=== PATIENT | male | born 1970 | race Caucasian/White ===

== ENCOUNTER 2019-01-29 08:38 | Day surgery (SDC) ==
[2019-01-29] MEDS: BETADINE OPTH PREP OP PRN ×2 (09:30→10:00)
[2019-01-29] MEDS: TETRACAINE 0.5% UNIT-DOSE OP PRN ×3 (09:30→10:18)
[2019-01-29] MEDS: CYCLOGYL 2% OPTH OP PRN ×3 (09:31→09:41)
[2019-01-29 09:42] VITALS: TEMP 98.3
[2019-01-29] MEDS ORDERED: BRIMONIDINE TARTRATE 0.2% OPTH SOL OP PRN (09:43)
[2019-01-29] MEDS ORDERED: LIDOCAINE 1% 20 ML MDV ID STA (09:43)
[2019-01-29] MEDS ORDERED: ZOFRAN 4 MG/2 ML IVP ONE (09:43)
[2019-01-29] MEDS ORDERED: DIPRIVAN 20 ML VIAL IVP ONE (10:00)
[2019-01-29] MEDS ORDERED: VERSED ONE (10:00)
[2019-01-29] MEDS ORDERED: SUBLIMAZE ONE (10:00)
[2019-01-29] MEDS ORDERED: ZOFRAN 4 MG/2 ML ONE (10:00)
[2019-01-29] MEDS: LIDOCAINE 1%/PHENYLEPHRINE 1.5% BSS (SURGERY) INTRAOCULA ONE ×2 (10:08→10:18)
[2019-01-29] MEDS: DEX-MOXI-KETOR OPTH INJ 1/0.5/0.4 MG/ML IO ONE ×2 (10:08→10:18)
[2019-01-29] MEDS: BSS WITH EPINEPHRINE OP ONE ×2 (10:08→10:18)
[2019-01-31 14:23] VITALS: BP 132/68
== END 2019-01-29 11:05 | disposition home or self-care (01) ==
LOC: SURG 08:38
PROVIDERS: ATTEND Ophthalmology
DX: H25.812 Combined forms of age-related cataract, left eye (principal)

== ENCOUNTER 2019-02-11 06:19 | Day surgery (SDC) ==
[2019-02-11] MEDS: BETADINE OPTH PREP OP PRN ×2 (06:30→07:25)
[2019-02-11] MEDS: TETRACAINE 0.5% UNIT-DOSE OP PRN ×3 (06:30→07:31)
[2019-02-11] MEDS: CYCLOGYL 2% OPTH OP PRN ×3 (06:31→06:41)
[2019-02-11] MEDS ORDERED: BSS WITH EPINEPHRINE OP ONE (06:38)
[2019-02-11] MEDS ORDERED: DEX-MOXI-KETOR OPTH INJ 1/0.5/0.4 MG/ML IO ONE (06:38)
[2019-02-11] MEDS ORDERED: ZOFRAN 4 MG/2 ML IVP ONE (06:38)
[2019-02-11] MEDS ORDERED: LIDOCAINE 1%/PHENYLEPHRINE 1.5% BSS (SURGERY) INTRAOCULA ONE (06:38)
[2019-02-11] MEDS ORDERED: BRIMONIDINE TARTRATE 0.2% OPTH SOL OP PRN (06:38)
[2019-02-11] MEDS: LIDOCAINE 1% 20 ML MDV ID STA ×2 (06:39→06:41)
[2019-02-11 06:45] VITALS: TEMP 97
[2019-02-11] MEDS ORDERED: SUBLIMAZE ONE (07:23)
[2019-02-11] MEDS ORDERED: VERSED ONE (07:23)
[2019-02-11] MEDS ORDERED: ZOFRAN 4 MG/2 ML ONE (07:23)
[2019-02-11 09:33] VITALS: BP 141/80
== END 2019-02-11 08:10 | disposition home or self-care (01) ==
LOC: SURG 06:19
PROVIDERS: ATTEND Ophthalmology
DX: H25.811 Combined forms of age-related cataract, right eye (principal)